=== PATIENT | female | born 1975 | race Caucasian/White ===

== ENCOUNTER → 2017-08-14 | Outpatient (REF) | payer OTHER | LOC: M SFHCWAGY 10:13 | PROVIDERS: ATTEND Nurse Practitioner Family | DX: Z01.419 Encounter for gynecological examination (general) (routine) without abnormal findings (principal); Z11.51 Encounter for screening for human papillomavirus (HPV) ==

== ENCOUNTER → 2017-09-17 | Outpatient (CLI) | payer OTHER | LOC: M WHC 11:08 | DX: Z12.31 Encounter for screening mammogram for malignant neoplasm of breast (principal); Z79.3 Long term (current) use of hormonal contraceptives | CPT/HCPCS: 77067 ==

== ENCOUNTER → 2017-09-24 | Outpatient (REF) | payer OTHER | LOC: M SFHCWAGY 14:39 | DX: R87.810 Cervical high risk human papillomavirus (HPV) DNA test positive (principal) ==

== ENCOUNTER → 2018-11-05 | Outpatient (CLI) | payer OTHER ==
--- NOTE | 2018-11-06 09:19 | REPMRS ---
Patient History The patient states she had a clinical breast exam in 10/2018. Family history of breast cancer at age 50 or over in paternal aunt, colorectal cancer under age 50 and endometrial cancer under age 50 in paternal aunt. Taking hormonal contraceptives for 21 years 2 months. Digital Woman Screen Mammo: November 05, 2018 - Exam #: [id number] Bilateral CC and MLO view(s) were taken. Technologist: Susan Marquez, Technologist Prior study comparison: September 17, 2017, digital woman screen mammo performed at [facility]. FINDINGS: There are scattered fibroglandular densities. There has been no change in the appearance of the mammogram from the prior studies. There is a mild amount of scattered fibroglandular density which is fairly symmetric. There is no interval development of dominant mass, architectural distortion, or clustered microcalcification suggestive of malignancy. 3-D tomosynthesis shows no additional findings. Assessment: BI-RADS/ACR category 1 mammogram. Negative Mammogram. Recommendation Routine screening mammogram of both breasts in 1 year (for women over age 40). This patient's Lifetime Breast Cancer RIsk is estimated at 13.9 %. This mammogram was interpreted with the aid of an FDA-approved computer-aided dectection system. Electronically Signed By: Kyaw Luz MD 11/06/18 0919
== END ==
LOC: M WHC 15:00
PROVIDERS: ATTEND Nurse Practitioner Family
DX: Z12.31 Encounter for screening mammogram for malignant neoplasm of breast (principal); Z92.0 Personal history of contraception

== ENCOUNTER → 2018-11-05 | Outpatient (REF) | payer OTHER ==
[2018-11-07 14:12] LABS: HPV HYBRID CAPTURE II Negative (Negative)
== END ==
LOC: M SFHCWAGY 15:25
PROVIDERS: ATTEND Nurse Practitioner Family
DX: Z12.4 Encounter for screening for malignant neoplasm of cervix (principal); N87.0 Mild cervical dysplasia
CPT/HCPCS: 87624; G0123

== ENCOUNTER → 2019-09-12 | Outpatient (CLI) | payer OTHER ==
[2019-09-12 18:00] LABS: FOLLICLE STIMULATING HORMONE 11.4 mIU/mL; LUTEINIZING HORMONE 5.6 mIU/mL
[2019-09-15 14:07] LABS: DEHYDROEPIANDROSTERONE SULFATE 220.2 ug/dL (57.3-279.2); TESTOSTERONE FREE (DIRECT) 1.7 pg/mL (0.0-4.2)
== END ==
LOC: M WUC 15:50
PROVIDERS: ATTEND Nurse Practitioner
DX: L72.3 Sebaceous cyst (principal)

== ENCOUNTER → 2020-11-09 | Outpatient (CLI) | payer OTHER ==
--- NOTE | 2020-11-09 12:06 | REPMRS ---
Patient History The patient states she had a clinical breast exam in 10/2020. Family history of breast cancer at age 50 or over in paternal aunt, colorectal cancer under age 50 and endometrial cancer under age 50 in paternal aunt. Taking hormonal contraceptives for 23 years 2 months. Digital Woman Screen Mammo: November 09, 2020 - Exam #: [id number] Bilateral CC and MLO view(s) were taken. Technologist: Izabel Manzo, Technologist Prior study comparison: November 05, 2018, bilateral digital woman screen mammo performed at [facility]. September 17, 2017, digital woman screen mammo performed at [facility]. FINDINGS: The breast tissue is heterogeneously dense. This may lower the sensitivity of mammography. The Volpara volumetric breast density category is: C. There is a moderate amount of heterogeneously dense fibroglandular tissue which is fairly symmetric. There is no interval development of dominant mass, architectural distortion, or grouped microcalcification typical of malignancy. There has been no change in the appearance of the mammogram from the prior studies. 3-D tomosynthesis shows no additional findings. Assessment: BI-RADS/ACR category 1 mammogram. Negative Mammogram. Recommendation Routine screening mammogram of both breasts in 1 year (for women over age 40). This patient's [facility] Lifetime Breast Cancer RIsk is estimated at 13.5 %. This mammogram was interpreted with the aid of an FDA-approved computer-aided dectection system. Electronically Signed By: Kyaw Luz MD 11/09/20 [id number]
== END ==
LOC: M WHC 09:53
PROVIDERS: ATTEND Nurse Practitioner Family
DX: Z12.31 Encounter for screening mammogram for malignant neoplasm of breast (principal); Z92.0 Personal history of contraception

== ENCOUNTER → 2020-11-30 | Outpatient (CLI) | payer OTHER ==
--- NOTE | 2020-11-30 09:17 | REP ---
INDICATION: HIDRADENITIS SUPPURATIVA COMPARISON: None. TECHNIQUE: PA and lateral. FINDINGS: The mediastinum and cardiac silhouette are normal. The lung clement are clear and without acute consolidation, effusion, or pneumothorax. The skeletal structures are intact and normal. IMPRESSION: No acute cardiopulmonary process. <Electronically signed by Josh Serrano > 11/30/20 0913
== END ==
LOC: M WUC 08:44
PROVIDERS: ATTEND Nurse Practitioner Family
DX: L73.2 Hidradenitis suppurativa (principal)

== ENCOUNTER → 2022-01-27 | Outpatient (CLI) | payer OTHER | LOC: M WHC 14:40 | PROVIDERS: ATTEND Obstetrics & Gynecology | DX: Z12.31 Encounter for screening mammogram for malignant neoplasm of breast (principal) ==

== ENCOUNTER → 2022-01-27 | Outpatient (REF) | payer OTHER | LOC: M SFHCWAGY 17:05 | PROVIDERS: ATTEND Obstetrics & Gynecology | DX: Z01.419 Encounter for gynecological examination (general) (routine) without abnormal findings (principal) ==

== ENCOUNTER → 2023-01-05 | Outpatient (CLI) | payer OTHER | LOC: M WUC 08:33 | PROVIDERS: ATTEND Nurse Practitioner Family | DX: L73.2 Hidradenitis suppurativa (principal) ==

== ENCOUNTER → 2023-01-29 | Outpatient (CLI) | payer OTHER | LOC: M WHC 13:04 | PROVIDERS: ATTEND Obstetrics & Gynecology | DX: Z12.31 Encounter for screening mammogram for malignant neoplasm of breast (principal) ==

== ENCOUNTER → 2024-02-05 | Outpatient (CLI) | payer OTHER ==
[2024-02-05 12:48] LABS: HEPATITIS C VIRUS ABY INDEX < 0.02 INDEX (<0.8)
[2024-02-05 13:21] LABS: HIV 1&2 SCREEN NEGATIVE (NEGATIVE)
== END ==
LOC: M WUC 08:30
PROVIDERS: ATTEND Nurse Practitioner Family
DX: Z51.81 Encounter for therapeutic drug level monitoring (principal); L73.2 Hidradenitis suppurativa; Z79.899 Other long term (current) drug therapy

== ENCOUNTER → 2024-02-13 | Outpatient (CLI) | payer OTHER | LOC: M WHC 10:13 | PROVIDERS: ATTEND Obstetrics & Gynecology | DX: Z12.31 Encounter for screening mammogram for malignant neoplasm of breast (principal) ==

== ENCOUNTER → 2024-02-13 | Outpatient (CLI) | payer OTHER | LOC: M WHC 09:32 | PROVIDERS: ATTEND Obstetrics & Gynecology | DX: Z12.31 Encounter for screening mammogram for malignant neoplasm of breast (principal) ==

== ENCOUNTER → 2024-04-01 | Outpatient (CLI) | payer OTHER | LOC: M WUC 09:21 | PROVIDERS: ATTEND Registered Nurse | DX: M25.551 Pain in right hip (principal) ==

== ENCOUNTER → 2024-04-16 | Outpatient (CLI) | payer OTHER | LOC: M RAD 13:00 | PROVIDERS: ATTEND Registered Nurse | DX: R91.8 Other nonspecific abnormal finding of lung field (principal); F17.200 Nicotine dependence, unspecified, uncomplicated ==

== ENCOUNTER → 2024-04-18 | Outpatient (CLI) | payer OTHER | LOC: M WUC 08:04 | PROVIDERS: ATTEND Registered Nurse | DX: M25.561 Pain in right knee (principal) ==

== ENCOUNTER → 2024-12-17 | Outpatient (CLI) | payer OTHER ==
[2024-12-17 14:55] LABS: HEPATITIS B SURFACE ANTIBODY NEGATIVE (POSITIVE)
[2024-12-17 15:20] LABS: HIV 1&2 SCREEN NEGATIVE (NEGATIVE)
[2024-12-17 15:28] LABS: HEPATITIS C VIRUS ABY INDEX 0.03 INDEX (<0.8)
[2024-12-19 14:08] LABS: QuantiFERON-TB Gold Plus NEGATIVE (NEGATIVE)
== END ==
LOC: M WUC 08:08
PROVIDERS: ATTEND Nurse Practitioner Family
DX: L73.2 Hidradenitis suppurativa (principal); Z51.81 Encounter for therapeutic drug level monitoring; Z79.899 Other long term (current) drug therapy

== ENCOUNTER → 2024-12-17 | Outpatient (CLI) | payer OTHER | LOC: M WUC 08:10 | PROVIDERS: ATTEND Registered Nurse | DX: M25.572 Pain in left ankle and joints of left foot (principal) ==